=== PATIENT | male | born 1995 | race Caucasian/White ===

== ENCOUNTER 2016-11-02 07:30 | Outpatient (CLI) | payer OTHER ==
[2016-11-02] MEDS ORDERED: GADOBUTROL 15 MMOL/15 ML VIAL IVP ONE (08:24)
== END 2016-11-02 07:31 | disposition home or self-care (01) ==
DX: R51 Headache (principal); H02.402 Unspecified ptosis of left eyelid; R20.9 Unspecified disturbances of skin sensation
CPT/HCPCS: 70553; A9585

== ENCOUNTER 2017-11-18 18:48 | Emergency (ER) | payer OTHER ==
[2017-11-18] MEDS ORDERED: diazePAM 5 MG TABLET PO STA (20:36)
[2017-11-18] MEDS ORDERED: DEXAMETHASONE 10 MG/ML VIAL PO STA (20:36)
[2017-11-18] MEDS ORDERED: oxyCOD/ACETAMIN 5 MG/325 MG TABLET PO STA (20:36)
[2017-11-18] MEDS ORDERED: KETOROLAC 60 MG/2 ML VIAL IM STA (20:36)
[2017-11-18] MEDS ORDERED: IBUPROFEN 600 MG TABLET PO STA (20:56)
[2017-11-18] MEDS ORDERED: oxyCODONE/ACET 5/325 Prepack 4 PO STA (21:47)
--- NOTE | 2017-11-18 21:50 | ED Physician Documentation ---
PD HPI BACK PAIN - Stated complaint Stated Complaint: BACK PX - Chief complaint Chief Complaint: Back Pain - History obtained from History obtained from: Patient, Family - History of Present Illness Timing - onset: Chronic Timing - details: Still present Location: Lower, Left Quality: Pain, Spasm, Aching Associated symptoms: Numbness Worsened by: Movement Similar symptoms before: Work up / diagnostics, Treatment Recently seen: Not recently seen - Additional information Additional information: Patient is a 22 year old male with a history of a bulging disc who is presenting to the emergency department for left lower back pain and left leg numbness. patient states that he has had symptoms like this in the past but is has been ok for awhile. patient reports that today he was walking out towards his car when he developed severe left sided pain and parasthesias in his left leg. Patient denies any trauma or urinary incontinence. Review of Systems Constitutional: denies: Fever, Chills Eyes: reports: Reviewed and negative Ears: reports: Reviewed and negative Nose: reports: Reviewed and negative Throat: reports: Reviewed and negative Cardiac: reports: Reviewed and negative Respiratory: reports: Reviewed and negative GI: denies: Nausea, Vomiting : denies: Unable to Void, Incontinent Skin: denies: Rash, Lesions Musculoskeletal: reports: Back pain, Extremity pain Neurologic: denies: Focal weakness, Numbness PD PAST MEDICAL HISTORY - Past Medical History Past Medical History: Yes Musculoskeletal: Chronic back pain - Past Surgical History Past Surgical History: No - Present Medications Home Medications: Ambulatory Orders Medication Instructions Recorded Confirmed Cyclobenzaprine [Flexeril] 11/18/17 - Allergies Allergies/Adverse Reactions: Allergies Allergy/AdvReac Type Severity Reaction Status Date / Time No Known Drug Allergies Allergy Verified 11/18/17 19:01 - Social History Does the pt smoke?: No Smoking Status: Never smoker PD ED PE NORMAL - General General: Alert and oriented X 3 - HEENT HEENT: Moist mucous membranes - Cardiac Cardiac: RRR - Respiratory Respiratory: No respiratory distress - Derm Derm: Normal color, No rash - Extremities Extremities: No deformity - Neuro Neuro: Alert and oriented X 3, No sensory deficit, Normal speech PD ED PE EXPANDED - General General: Alert, In Pain - Back Back: Straight leg raise + L, Other (tenderness to palpation left SI joints) - Neuro Neuro: Normal Sensation, Other (no saddle paresthesia) Results - Vitals Vitals: Vital Signs - 24 hr 11/18/17 11/18/17 11/18/17 18:58 21:07 21:51 Temperature 36.6 C 36.7 C 36.8 C Heart Rate 104 H 91 81 Respiratory 18 22 20 Rate Blood Pressure 138/119 H 129/78 137/97 H O2 Saturation 96 97 96 Oxygen O2 Source Room air PD MEDICAL DECISION MAKING - ED course Complexity details: reviewed old records, reviewed results, re-evaluated patient , considered differential, d/w patient, d/w family ED course: Patient was seen and examined at bedside. Patient was treated with ibuprofen, decadron, percocets and valium. Patient had significant pain and some decreased tactile sensation. There was no ability for MRI at night so arrangements were made for MRI tomorrow. Patient's pain improved and patient was to return in the morning for MRI around 11am. Departure - Departure Disposition: 01 Home, Self Care Clinical Impression: Bulging lumbar disc Condition: Good Instructions: Diskectomy Minimally Invasive About Follow-Up: emergency,department [Other] - Tomorrow Comments: Please return to the emergency department tomorrow morning for an MRI at 11am. Forms: Activity restrictions Discharge Date/Time: 11/18/17 22:03
[2017-11-18 21:52] VITALS: BP 137/97
== END 2017-11-18 22:03 | disposition home or self-care (01) ==
LOC: ED 18:48
DX: M51.26 Other intervertebral disc displacement, lumbar region (principal); G89.29 Other chronic pain
CPT/HCPCS: 99283; A9270

== ENCOUNTER 2017-11-19 10:37 | Emergency (ER) | payer OTHER ==
--- NOTE | 2017-11-19 12:43 | ED Physician Documentation ---
PD HPI BACK PAIN - Stated complaint Stated Complaint: BACK PX - Chief complaint Chief Complaint: Back Pain - History obtained from History obtained from: Patient - History of Present Illness Timing - onset: How many weeks ago (had been having back pain radiating to left left for weeks. Seen by PCP and has had meds and PT without improvement. Seen in ED yesterday with increased pain down left leg. ED physician felt MRI would be appropriate but not needed emergently and tach was gone for the day, so was to return today for MRI. Patient says the oxycodone pain meds are not helping the pain.) Timing - duration: Weeks Timing - details: Gradual onset, Still present, Waxing and waning Quality: Pain, Sharp, Aching. No: Spasm Associated symptoms: No: Fever, Weakness, Incontinent of urine Improves with: No: Rest, Meds (does not feel improvement with patches on back, NSAIDs, muscle relaxants. Has had some pain meds through PCP, without much improvement.) Worsened by: Movement, Twisting Similar symptoms before: Has not had sx before Recently seen: Clinic (the past few weeks), Emergency Dept (yesterday) Review of Systems Constitutional: denies: Fever, Chills, Myalgias GI: denies: Abdominal Pain, Nausea, Vomiting, Diarrhea : denies: Incontinent Skin: denies: Rash, Lesions Neurologic: denies: Focal weakness, Numbness PD PAST MEDICAL HISTORY - Past Medical History Cardiovascular: None Respiratory: None Neuro: None Endocrine/Autoimmune: None Musculoskeletal: Chronic back pain - Past Surgical History Past Surgical History: No - Present Medications Home Medications: Ambulatory Orders Medication Instructions Recorded Confirmed Cyclobenzaprine [Flexeril] 11/18/17 Gabapentin [Neurontin] 300 mg PO BID #40 capsule 11/19/17 Oxycodone HCl 10 mg PO Q6H PRN #25 tablet 11/19/17 oxyCODONE [Roxicodone] 11/19/17 - Allergies Allergies/Adverse Reactions: Allergies Allergy/AdvReac Type Severity Reaction Status Date / Time No Known Drug Allergies Allergy Verified 11/18/17 19:01 - Social History Does the pt smoke?: No Smoking Status: Never smoker Does the pt drink ETOH?: Yes Does the pt have substance abuse?: No - Immunizations Immunizations are current?: No - POLST Patient has POLST: No PD ED PE NORMAL - Vitals Vital signs reviewed: Yes - General General: Alert and oriented X 3, Well developed/nourished, Other (appears in pain and also frustrated that the pain has had such long duration. ) - Cardiac Cardiac: RRR, No murmur - Respiratory Respiratory: Clear bilaterally - Abdomen Abdomen: Soft, Non tender - Back Back: No CVA TTP, Other (tender left lower back lower lumbar area to left more than right without skin sores, redness, rash. ) - Derm Derm: Normal color, Warm and dry, No rash - Extremities Extremities: No tenderness to palpate, Normal ROM s pain - Neuro Neuro: Alert and oriented X 3, No motor deficit, Normal speech, Other (less sensation lateral left foot but still has sensation.) Results - Vitals Vitals: Oxygen O2 Source Room air - Rads (name of study) lumbar MRI Radiology: Prelim report reviewed (L5 disc mild bulging with encroachment on L5S1 nerve root canal. ) PD MEDICAL DECISION MAKING - ED course Complexity details: considered differential (minimal findings on MRI that would not suggest urgent spine surgery referral. Having a lot of pain in back despite NSAIDs, steroid, muscle relaxant, pain meds. Can add Gabapentin and higher dose oxycodone. He says patches have not helped (lidoderm). Referred back to PCP for PT and consideration of spinal injection, as he does have symptoms corresponding to L% nerve impingement. ), d/w patient Departure - Departure Disposition: 01 Home, Self Care Clinical Impression: Low back pain Qualifiers: Chronicity: acute Back pain laterality: left Sciatica presence: with sciatica Sciatica laterality: sciatica of left side Qualified Code(s): M54.42 - Lumbago with sciatica, left side Condition: Stable Record reviewed to determine appropriate education?: Yes Instructions: ED Low Back Pain Injury, ED Sciatica Follow-Up: KAY Chiang [Provider Group] Prescriptions: Gabapentin [Neurontin] 300 mg PO BID #40 capsule Oxycodone HCl 10 mg PO Q6H PRN #25 tablet PRN Reason: Pain Comments: Continue the current muscle relaxant and steroid anti-inflammatory. You can add some ibuprofen or naproxen 2-3 times daily. You could add gabapentin to help with nerve pain. Continue the oxycodone if needed for pain. The MRI finding shows some mild bulging disc with what looks like some pressure on the nerve root consistent with your pinched nerve symptoms. Commonly the initial treatment would be physical therapy though if you have already been through that then potentially specialist might do a local injection at the nerve root and facet. That would need to go through your primary care for referral that way. Discharge Date/Time: 11/19/17 16:02
[2017-11-19] MEDS ORDERED: KETOROLAC 60 MG/2 ML VIAL IM STA (12:50)
[2017-11-19] MEDS ORDERED: HYDROmorphone 1 MG/ML SYRINGE IM STA ×2 (12:50→15:37)
--- NOTE | 2017-11-19 14:42 | MRI Preliminary Report ---
Exam: MRI LUMBAR SPINE W/O IMPRESSION: 1. Early termination of the thecal sac at the L5 level. Fat fills the spinal canal in the lower lumba r and visualized sacral spine. 2. L5-S1: Mild degenerative disk change. Mild circumferential disk bulge with dorsal annular fissure. No stenosis. Comment: The following findings are so common in adults without low back pain that while we report th eir presence, they must be interpreted with caution and in the context of the clinical situation. (Re avelina Bell et al, Spine 2001) Prevalence of findings in patients without low back pain: Disk degeneration (any evidence): 92% Disk desiccation/T2 signal loss: 83% Disk height loss: 56% Disk bulge: 64% Disk protrusion: 32% Annular tear/high intensity zone: 38% [facility] SITE ID: [id number]
--- NOTE | 2017-11-19 14:53 | MRI Report ---
EXAM: MRI LUMBAR SPINE WITHOUT CONTRAST EXAM DATE: 11/19/2017 02:07 PM. CLINICAL HISTORY: Chronic low back pain for 4 years, worse in the past 2 days. Left leg pain with num bness and tingling. COMPARISON: None. TECHNIQUE: Multiplanar, multisequence T1-weighted and fluid-sensitive sequences of the lumbar spine f rom T12 to S1 without contrast. Other: None. FINDINGS: Spinal Cord: The conus terminates at T12-L1. The conus medullaris and cauda equina are unremarkable. There is early termination of the thecal sac at the L5 level. Fat fills the spinal canal in the lower lumbar and visualized sacral spine surrounding distal thecal sac and descending nerve roots. Alignment: No scoliosis or spondylolisthesis. Bone Marrow: Five [id number] lumbar vertebral bodies are assumed. No gross fractures or bone les ions. No bone marrow edema. Disk Levels/Facets: T12-L1: Unremarkable on sagittal series. L1-L2: Unremarkable. L2-L3: Unremarkable. L3-L4: Unremarkable. L4-L5: Unremarkable. L5-S1: Mild loss of disk space height is seen. T2-hypointense disk signal is seen. Mild circumferenti al disk bulge is seen. Dorsal annular fissure is seen. This effaces fat within the spinal canal. Subt le mild effacement of descending S1 nerve roots is seen. No stenosis. Musculature: Normal. No edema or fatty atrophy. Other: The partially visualized retroperitoneum is unremarkable. IMPRESSION: 1. Early termination of the thecal sac at the L5 level. Fat fills the spinal canal in the lower lumba r and visualized sacral spine. 2. L5-S1: Mild degenerative disk change. Mild circumferential disk bulge with dorsal annular fissure. No stenosis. Comment: The following findings are so common in adults without low back pain that while we report th eir presence, they must be interpreted with caution and in the context of the clinical situation. (Re avelina Bell et al, Spine 2001) Prevalence of findings in patients without low back pain: Disk degeneration (any evidence): 92% Disk desiccation/T2 signal loss: 83% Disk height loss: 56% Disk bulge: 64% Disk protrusion: 32% Annular tear/high intensity zone: 38% [facility] Referring Provider Line: [phone] SITE ID: [id number]
[2017-11-19 16:09] VITALS: BP 135/88
== END 2017-11-19 16:02 | disposition home or self-care (01) ==
LOC: ED 10:37
DX: M54.42 Lumbago with sciatica, left side (principal); G89.29 Other chronic pain
CPT/HCPCS: 72148; 96372; 99283; 99284; J1170